=== PATIENT | male | born 1980 | race Caucasian/White ===

== ENCOUNTER 2023-05-12 13:50 | Emergency (ER) | payer MEDICARE, MEDICAID ==
[~2023-05-12] VITALS: Ht 177.8 cm; Wt 109.5 kg
[2023-05-12 14:14] VITALS: BP 120/82; PULSE 104; TEMP 98; O2SAT 97
[2023-05-12 14:36] VITALS: RESP 18
[2023-05-12] MEDS ORDERED: CIPR10DR RIGHT EAR (14:39)
[2023-05-12] MEDS ORDERED: AMOX-117 PO (14:39)
--- NOTE | 2023-05-12 17:16 | NUR ---
I AGREE WITH THE ASSESSMENTS PER Ruth PASCUAL LVN.
== END 2023-05-12 14:50 | disposition home or self-care (01) ==
LOC: ER 13:51
DX: H66.91 Otitis media, unspecified, right ear (principal)
CPT/HCPCS: 99283

== ENCOUNTER 2024-07-13 12:57 | Outpatient (CLI) | payer MEDICARE, MEDICAID ==
[~2024-07-13] VITALS: Ht 177.8 cm; Wt 111.6 kg
[2024-07-13] MEDS: albuterol 2.5 MG/3 ML nebule NEB ONE (13:41)
[2024-07-13 13:49] VITALS: PULSE 96; RESP 14; O2SAT 98
[2024-07-13 14:01] VITALS: PULSE 104; RESP 14
== END 2024-07-13 23:59 | disposition home or self-care (01) ==
LOC: RT 12:57
PROVIDERS: ATTEND Physician Assistant
DX: R94.2 Abnormal results of pulmonary function studies (principal); R06.00 Dyspnea, unspecified
CPT/HCPCS: 94060; 94729; 94760